=== PATIENT | female | born 1985 | race Caucasian/White ===

== ENCOUNTER 2017-09-18 05:18 | Day surgery (SDC) | payer OTHER ==
[~2017-09-18] VITALS: Ht 162.6 cm; Wt 81.6 kg
[~2017-09-18 05:18] MED LIST: DAILY MULTIPLE1 EACH PO; EFFEXOR XR75 MG PO; LEVAQUIN750 MG PO; MOTRIN800 MG PO; PERCOCET 5/31 TABLET PO; PROBIOTIC1 EAC2 PO; ULTRAM50 MG PO; ZOFRAN ODT4 MG PO; ZOLOFT25 MG PO
[2017-09-18 06:01] VITALS: BP 104/59
[2017-09-18] MEDS ORDERED: PERCOCET 5/31 TABLET PO (09:03)
[2017-09-18] MEDS ORDERED: MOTRIN800 MG PO (09:03)
[2017-09-18 10:32] VITALS: BP 103/61
[2017-09-18 11:32] VITALS: BP 109/65
== END 2017-09-18 11:52 | disposition home or self-care (01) ==
LOC: SDC 05:18
PROC: 0UT74ZZ Resection of Bilateral Fallopian Tubes, Percutaneous Endoscopic Approach (ICD-10-PCS; principal; 2017-09-18)
PROC: 0UP Female Reproductive System, Removal (ICD-10-PCS; principal; 2017-09-18)
DX: N73.6 Female pelvic peritoneal adhesions (postinfective) (principal); R10.2 Pelvic and perineal pain; G89.29 Other chronic pain; Z87.891 Personal history of nicotine dependence
CPT/HCPCS: 88302; J0330; J0690; J1100; J1170; J1885; J2405; J2710; J3010; S0020